=== PATIENT | male | born 1965 | race Caucasian/White ===

== ENCOUNTER 2017-11-23 23:18 | Emergency (ER) | payer SELFPAY ==
[~2017-11-23 23:18] MED LIST changes: -FAMO20TA28 PO; -ONDA4TAB PO
--- NOTE | 2017-11-23 23:23 | ER Report ---
History and Physical Time Seen By MD: 23:23 HPI/ROS CHIEF COMPLAINT: Vomiting HISTORY OF PRESENT ILLNESS: 52-year-old male brought in by EMS from [facility]. He is legally blind. Patient's been vomiting for 3 days. He notes no abdominal pain. He denies diarrhea. He denies fever or chills. He denies exposure to ill contacts. Patient is homeless and travels on [employer] bus is frequently. Patient was picked up outside of [facility]. He states he ate there tonight. Patient denies dysuria, frequency or hematuria. Patient denies previous abdominal surgery. REVIEW OF SYSTEMS: Respiratory: No cough, no dyspnea. Cardiovascular: No chest pain, no palpitations. Gastrointestinal: As above Musculoskeletal: No back pain. Allergies: Coded Allergies: No Known Drug Allergies (Unverified , 04/10/14) Home Meds Active Scripts Ondansetron (ZOFRAN ODT) 4 Mg Tab.rapdis, 4 MG PO every 6 hours Y for NAUSEA/ VOMITING, #10 TAB TAKE 1 TABLET BY MOUTH EVERY 12 HOURS Prov:TARYN COBB DO 11/24/17 Naproxen (NAPROSYN) 500 Mg Tablet, 500 MG PO Q12H, #30 TAB TAKE 1 TABLET EVERY 12 HOURS. Prov:JHONY DE LEÓN MD 04/10/14 Reported Medications Meclizine Hcl (MECLIZINE HCL) 25 Mg Tablet, 25 MG PO BID 04/10/14 Discontinued Scripts Meclizine Hcl (MECLIZINE HCL) 25 Mg Tablet, 25 MG PO TID Y for dizziness, #30 2 Refills Prov:TARYN COBB DO 04/11/14 Tramadol Hcl (ULTRAM) 50 Mg Tablet, 50 MG PO Q4-6H, #20 TAB Prov:JHONY DE LEÓN MD 04/10/14 Reviewed Nurses Notes: Yes Old Medical Records Reviewed: Yes Hx Smoking: No Smoking Status: Never Smoker Hx Substance Use Disorder: No Hx Alcohol Use: Yes (OCC) Constitutional Vital Sign - Last 24 Hours 11/23/17 11/23/17 11/23/17 11/24/17 23:24 23:30 23:45 00:00 Temp 98.3 Pulse 82 Resp 18 B/P (MAP) 151/102 142/108 (119) 155/104 (121) 162/99 (120) Pulse Ox 90 O2 Delivery Room Air Physical Exam Vital signs stable, afebrile, pulse ox normal General Appearance: The patient is alert, has no immediate need for airway protection and no current signs of toxicity. Mild distress, staining of his kauffman with emesis HEENT: Pupils equal and round no injection. TMs normal, oropharynx without redness or exudate Respiratory: Chest is non tender, lungs are clear to auscultation. Cardiac: regular rate and rhythm Gastrointestinal: Abdomen is soft and non tender, no masses, bowel sounds normal. Musculoskeletal: Neck: Neck is supple and non tender. Extremities have full range of motion and are non tender. Skin: No rashes or lesions. DIFFERENTIAL DIAGNOSIS: After history and physical exam differential diagnosis was considered for abdominal pain including but not limited to appendicitis, cholecystitis, gastritis, food poisoning, gastroenteritis, viral syndrome and urinary tract infection. Medical Decision Making Data Points Result Diagram: 11/24/17 0020 11/24/17 0020 Laboratory Hematology Test 11/23/17 23:50 11/24/17 00:20 Urine Color Yellow Urine Clarity Clear Urine pH 7.0 pH (4.8-9.5) Urine Specific [place] 1.009 Urine Protein Negative mg/dL (NEGATIVE) Urine Glucose (UA) Negative mg/dL (NEGATIVE) Urine Ketones Negative mg/dL (NEGATIVE) Urine Blood Negative (NEGATIVE) Urine Nitrite Negative (NEGATIVE) Urine Bilirubin Negative (NEGATIVE) Urine Urobilinogen Negative mg/dL (0.2-1.9) Urine Leukocyte Esterase Negative (NEGATIVE) Urine RBC None /HPF (0-2/HPF) Urine WBC None /HPF (0-5/HPF) Urine Squamous Epithelial Cells Few /LPF (</=FEW) Urine Bacteria Negative /HPF (NONE-FEW) Urine Mucus None /HPF (NONE-FEW) Red Blood Count 4.61 M/uL (4.00-5.60) Mean Corpuscular Volume 74.4 fL (80.0-96.0) Mean Corpuscular Hemoglobin 24.1 pg (26.0-33.0) Mean Corpuscular Hemoglobin Concent 32.4 g/dL (32.0-36.0) Red Cell Distribution Width 16.1 % (11.5-14.5) Mean Platelet Volume 9.4 fL (7.2-11.1) Neutrophils (%) (Auto) 75.0 % (39.4-72.5) Lymphocytes (%) (Auto) 11.9 % (17.6-49.6) Monocytes (%) (Auto) 9.9 % (4.1-12.4) Eosinophils (%) (Auto) 2.4 % (0.4-6.7) Basophils (%) (Auto) 0.8 % (0.3-1.4) Nucleated RBC Relative Count (auto) 0.1 /100WBC Neutrophils # (Auto) 6.3 K/uL (2.0-7.4) Lymphocytes # (Auto) 1.0 K/uL (1.3-3.6) Monocytes # (Auto) 0.8 K/uL (0.3-1.0) Eosinophils # (Auto) 0.2 K/uL (0.0-0.5) Basophils # (Auto) 0.1 K/uL (0.0-0.1) Nucleated RBC Absolute Count (auto) 0.01 K/uL Peripheral Blood Smear No Y/N Sodium Level 138 mmol/L (137-145) Potassium Level 3.7 mmol/L (3.5-5.0) Chloride Level 101 mmol/L (98-107) Carbon Dioxide Level 24 mmol/L (22-30) Blood Urea Nitrogen 17 mg/dl (9-21) Creatinine 0.80 mg/dl (0.66-1.25) Glomerular Filtration Rate Calc > 60.0 Random Glucose 89 mg/dl (75-110) Calcium Level 8.9 mg/dl (8.4-10.2) Total Bilirubin 0.4 mg/dl (0.2-1.3) Aspartate Amino Transf (AST/SGOT) 23 U/L (0-35) Alanine Aminotransferase (ALT/SGPT) 22 U/L (0-56) Alkaline Phosphatase 91 U/L (0-126) Total Protein 7.0 g/dl (6.3-8.2) Albumin 3.7 g/dl (3.5-5.0) Amylase Level 63 U/L (0-110) Lipase 170 U/L (23-300) Serum Alcohol < 10 mg/dl Chemistry Test 11/23/17 23:50 11/24/17 00:20 Urine Color Yellow Urine Clarity Clear Urine pH 7.0 pH (4.8-9.5) Urine Specific [place] 1.009 Urine Protein Negative mg/dL (NEGATIVE) Urine Glucose (UA) Negative mg/dL (NEGATIVE) Urine Ketones Negative mg/dL (NEGATIVE) Urine Blood Negative (NEGATIVE) Urine Nitrite Negative (NEGATIVE) Urine Bilirubin Negative (NEGATIVE) Urine Urobilinogen Negative mg/dL (0.2-1.9) Urine Leukocyte Esterase Negative (NEGATIVE) Urine RBC None /HPF (0-2/HPF) Urine WBC None /HPF (0-5/HPF) Urine Squamous Epithelial Cells Few /LPF (</=FEW) Urine Bacteria Negative /HPF (NONE-FEW) Urine Mucus None /HPF (NONE-FEW) White Blood Count 8.4 k/uL (4.5-11.0) Red Blood Count 4.61 M/uL (4.00-5.60) Hemoglobin 11.1 g/dL (14.0-18.0) Hematocrit 34.3 % (42.0-52.0) Mean Corpuscular Volume 74.4 fL (80.0-96.0) Mean Corpuscular Hemoglobin 24.1 pg (26.0-33.0) Mean Corpuscular Hemoglobin Concent 32.4 g/dL (32.0-36.0) Red Cell Distribution Width 16.1 % (11.5-14.5) Platelet Count 213 K/uL (150-450) Mean Platelet Volume 9.4 fL (7.2-11.1) Neutrophils (%) (Auto) 75.0 % (39.4-72.5) Lymphocytes (%) (Auto) 11.9 % (17.6-49.6) Monocytes (%) (Auto) 9.9 % (4.1-12.4) Eosinophils (%) (Auto) 2.4 % (0.4-6.7) Basophils (%) (Auto) 0.8 % (0.3-1.4) Nucleated RBC Relative Count (auto) 0.1 /100WBC Neutrophils # (Auto) 6.3 K/uL (2.0-7.4) Lymphocytes # (Auto) 1.0 K/uL (1.3-3.6) Monocytes # (Auto) 0.8 K/uL (0.3-1.0) Eosinophils # (Auto) 0.2 K/uL (0.0-0.5) Basophils # (Auto) 0.1 K/uL (0.0-0.1) Nucleated RBC Absolute Count (auto) 0.01 K/uL Peripheral Blood Smear No Y/N Glomerular Filtration Rate Calc > 60.0 Calcium Level 8.9 mg/dl (8.4-10.2) Total Bilirubin 0.4 mg/dl (0.2-1.3) Aspartate Amino Transf (AST/SGOT) 23 U/L (0-35) Alanine Aminotransferase (ALT/SGPT) 22 U/L (0-56) Alkaline Phosphatase 91 U/L (0-126) Total Protein 7.0 g/dl (6.3-8.2) Albumin 3.7 g/dl (3.5-5.0) Amylase Level 63 U/L (0-110) Lipase 170 U/L (23-300) Serum Alcohol < 10 mg/dl Toxicology Test 11/24/17 00:20 Serum Alcohol < 10 mg/dl Urinalysis Test 11/23/17 23:50 Urine Color Yellow Urine Clarity Clear Urine pH 7.0 pH (4.8-9.5) Urine Specific [place] 1.009 Urine Protein Negative mg/dL (NEGATIVE) Urine Glucose (UA) Negative mg/dL (NEGATIVE) Urine Ketones Negative mg/dL (NEGATIVE) Urine Blood Negative (NEGATIVE) Urine Nitrite Negative (NEGATIVE) Urine Bilirubin Negative (NEGATIVE) Urine Urobilinogen Negative mg/dL (0.2-1.9) Urine Leukocyte Esterase Negative (NEGATIVE) Urine RBC None /HPF (0-2/HPF) Urine WBC None /HPF (0-5/HPF) Urine Squamous Epithelial Cells Few /LPF (</=FEW) Urine Bacteria Negative /HPF (NONE-FEW) Urine Mucus None /HPF (NONE-FEW) ED Course/Re-evaluation ED Course Patient was admitted to an examination room. H&P was done. The dental diagnoses was considered. IV fluid hydration and Zofran were ordered. Unfortunately nurses were unable to establish a peripheral IV. Patient had routine blood drawn. After a period of observation, the patient was reevaluated. He's got a jug milk on his bed and he is eating cookies which he removed from his bag. Patient was informed of his laboratory studies are unremarkable. He's advised a clear liquid diet. He is given prescription for Zofran. Patient advised to follow-up with primary care if unimproved in 3-5 days. Decision to Disposition Date: Nov 24, 2017 Decision to Disposition Time: 01:40 Depart Departure Latest Vital Signs Vital Signs Date Time Temp Pulse Resp B/P (MAP) Pulse Ox O2 Delivery O2 Flow Rate FiO2 11/24/17 00:00 162/99 (120) 11/23/17 23:24 98.3 82 18 90 Room Air Impression: Primary Impression: Nausea and vomiting Additional Impressions: Chronic vertigo Legal blindness Condition: Improved Disposition: HOME OR SELF-CARE New Scripts Ondansetron (ZOFRAN ODT) 4 Mg Tab.rapdis 4 MG PO every 6 hours Y for NAUSEA/VOMITING, #10 TAB TAKE 1 TABLET BY MOUTH EVERY 12 HOURS Prov: TARYN COBB DO 11/24/17 Patient Instructions: Acute Nausea and Vomiting (ED), Clear Liquid Diet (ED) Additional Instructions: Follow clear liquid diet for 24 hours, then advance to Denzel diet, bananas, rice , applesauce and toast Use Zofran/ondansetron to control vomiting as needed Follow-up with primary care if unimproved in 3-5 days. Problem Qualifiers Primary Impression: Nausea and vomiting Vomiting type: unspecified Vomiting Intractability: unspecified Qualified Codes: R11.2 - Nausea with vomiting, unspecified TARYN COBB DO Nov 23, 2017 23:23
[2017-11-23] MEDS ORDERED: ONDANSETRON 4 MG/2 ML VIAL IVP ONE (23:25)
[2017-11-24] VITALS: BP 162/99
[2017-11-24 00:27] LABS: PLATELET COUNT, AUTOMATED 213 K/uL (150-450)
[2017-11-24] MEDS ORDERED: ONDA4TAB PO (01:42)
[2017-11-24] MEDS ORDERED: ONDANSETRON 4 MG ODT TH SL ONE (01:45)
[2017-11-24] MEDS ORDERED: ONDANSETRON 4 MG ODT TABDP SL ONE (01:45)
[2017-11-24] MEDS ORDERED: MIDAZOLAM 10 MG/2 ML VIAL IVP ONE (01:55)
[2017-11-25] MEDS ORDERED: FAMO20TA28 PO (12:34)
== END 2017-11-24 02:20 | disposition home or self-care (01) ==
LOC: ER 23:25
DX: R42 Dizziness and giddiness (principal); R11.2 Nausea with vomiting, unspecified; H54.8 Legal blindness, as defined in USA
CPT/HCPCS: 36415; 80320; 81001; 82150; 83690; 85025; 99283; S0119; 82040; 82247; 82310; 82374; 82435; 82565; 82947; 84075; 84132; 84155; 84295; 84450; 84460; 84520

== ENCOUNTER → 2017-11-23 | Outpatient (CLI) | payer SELFPAY ==
[~2017-11-23] MED LIST: FAMO20TA28 PO; MECL25TA9 PO; NAPR500T75 PO; ONDA4TAB PO; TRAM-627 PO
== END ==
LOC: AMB 23:06
PROVIDERS: ATTEND Nurse Practitioner
DX: R11.2 Nausea with vomiting, unspecified (principal); I10 Essential (primary) hypertension
CPT/HCPCS: A0425; A0429

== ENCOUNTER 2017-11-24 12:35 | Emergency (ER) | payer SELFPAY ==
[~2017-11-24 12:35] MED LIST changes: -FAMO20TA28 PO
[2017-11-24] MEDS ORDERED: NS(*) 0.9% 1000 ML BAG 1,000 ML IV ONE (13:25)
--- NOTE | 2017-11-24 13:28 | ER Report ---
History and Physical Time Seen By MD: 13:03 Hx. of Stated Complaint: pt reports nausea, one episode of vomiting HPI/ROS Chief Complaint: "dizzy and lethargic" HPI: 52-year-old patient presents to the emergency department with complaints of dizziness and lethargy. He reports his symptoms started three days ago. He sought care from the emergency department yesterday. He states nothing makes the dizziness or lethargy worse or better. He states his appetite has not changed. Reports he did vomit this morning. He reports no treatments tried. ROS: Constitutional: denies fevers, chills, or night sweats, reports lethargy and dizziness Head: denies headache ENMT: denies sore throat Respiratory: denies chest pain or shortness of breath CV: denies chest pain GI: reports vomiting, denies constipation or diarrhea Allergies: Coded Allergies: No Known Drug Allergies (Unverified , 04/10/14) Home Meds Active Scripts Ondansetron (ZOFRAN ODT) 4 Mg Tab.rapdis, 4 MG PO every 6 hours Y for NAUSEA/ VOMITING, #10 TAB TAKE 1 TABLET BY MOUTH EVERY 12 HOURS Prov:TARYN COBB DO 11/24/17 Naproxen (NAPROSYN) 500 Mg Tablet, 500 MG PO Q12H, #30 TAB TAKE 1 TABLET EVERY 12 HOURS. Prov:JHONY DE LEÓN MD 04/10/14 Reported Medications Meclizine Hcl (MECLIZINE HCL) 25 Mg Tablet, 25 MG PO BID 04/10/14 Discontinued Scripts Meclizine Hcl (MECLIZINE HCL) 25 Mg Tablet, 25 MG PO TID Y for dizziness, #30 2 Refills Prov:TARYN COBB DO 04/11/14 Tramadol Hcl (ULTRAM) 50 Mg Tablet, 50 MG PO Q4-6H, #20 TAB Prov:JHONY DE LEÓN MD 04/10/14 Past Medical/Surgical History blindness, orthopedic surgery Hx Smoking: No Smoking Status: Never Smoker Hx Substance Use Disorder: No Hx Alcohol Use: Yes (OCC) Constitutional Vital Sign - Last 24 Hours 11/24/17 11/24/17 12:35 15:48 Temp 97.9 Pulse 96 77 Resp 16 94 B/P (MAP) 142/102 124/70 (88) Pulse Ox 93 O2 Delivery Room Air Room Air Physical Exam General: 52-year-old blind male, appears indigent, in no acute distress Head: normocephalic, atraumatic Eyes: Pupils BL equal, round, and reactive to light and accommodation Respiratory: Bl equal respiratory excursion, CTA BL CV: Clear S1 S2, no murmurs GI: normoactive BS x 4, no pain on palpation Musculoskeletal: moves all extremities Differential diagnoses considered: hypotension, dehydration, viral illness, gastroenteritis Medical Decision Making Data Points Result Diagram: 11/24/17 1410 11/24/17 1410 Laboratory Hematology Test 11/24/17 14:10 11/24/17 15:05 Red Blood Count 4.71 M/uL (4.00-5.60) Mean Corpuscular Volume 73.7 fL (80.0-96.0) Mean Corpuscular Hemoglobin 23.7 pg (26.0-33.0) Mean Corpuscular Hemoglobin Concent 32.1 g/dL (32.0-36.0) Red Cell Distribution Width 16.2 % (11.5-14.5) Mean Platelet Volume 9.1 fL (7.2-11.1) Neutrophils (%) (Auto) 72.3 % (39.4-72.5) Lymphocytes (%) (Auto) 14.2 % (17.6-49.6) Monocytes (%) (Auto) 9.5 % (4.1-12.4) Eosinophils (%) (Auto) 3.3 % (0.4-6.7) Basophils (%) (Auto) 0.7 % (0.3-1.4) Nucleated RBC Relative Count (auto) 0.0 /100WBC Neutrophils # (Auto) 5.0 K/uL (2.0-7.4) Lymphocytes # (Auto) 1.0 K/uL (1.3-3.6) Monocytes # (Auto) 0.7 K/uL (0.3-1.0) Eosinophils # (Auto) 0.2 K/uL (0.0-0.5) Basophils # (Auto) 0.1 K/uL (0.0-0.1) Nucleated RBC Absolute Count (auto) 0.00 K/uL Sodium Level 141 mmol/L (137-145) Potassium Level 4.1 mmol/L (3.5-5.0) Chloride Level 103 mmol/L (98-107) Carbon Dioxide Level 23 mmol/L (22-30) Blood Urea Nitrogen 15 mg/dl (9-21) Creatinine 0.70 mg/dl (0.66-1.25) Glomerular Filtration Rate Calc > 60.0 Random Glucose 105 mg/dl (75-110) Calcium Level 9.0 mg/dl (8.4-10.2) Total Bilirubin 0.4 mg/dl (0.2-1.3) Aspartate Amino Transf (AST/SGOT) 20 U/L (0-35) Alanine Aminotransferase (ALT/SGPT) 26 U/L (0-56) Alkaline Phosphatase 90 U/L (0-126) Total Protein 7.3 g/dl (6.3-8.2) Albumin 3.8 g/dl (3.5-5.0) Urine Color Straw Urine Clarity Clear Urine pH 6.0 pH (4.8-9.5) Urine Specific [place] 1.006 Urine Protein Negative mg/dL (NEGATIVE) Urine Glucose (UA) Negative mg/dL (NEGATIVE) Urine Ketones Negative mg/dL (NEGATIVE) Urine Blood Negative (NEGATIVE) Urine Nitrite Negative (NEGATIVE) Urine Bilirubin Negative (NEGATIVE) Urine Urobilinogen Negative mg/dL (0.2-1.9) Urine Leukocyte Esterase Negative (NEGATIVE) Urine RBC <1 /HPF (0-2/HPF) Urine WBC <1 /HPF (0-5/HPF) Urine Squamous Epithelial Cells None /LPF (</=FEW) Urine Bacteria Negative /HPF (NONE-FEW) Urine Mucus None /HPF (NONE-FEW) Chemistry Test 11/24/17 14:10 11/24/17 15:05 White Blood Count 6.9 k/uL (4.5-11.0) Red Blood Count 4.71 M/uL (4.00-5.60) Hemoglobin 11.2 g/dL (14.0-18.0) Hematocrit 34.7 % (42.0-52.0) Mean Corpuscular Volume 73.7 fL (80.0-96.0) Mean Corpuscular Hemoglobin 23.7 pg (26.0-33.0) Mean Corpuscular Hemoglobin Concent 32.1 g/dL (32.0-36.0) Red Cell Distribution Width 16.2 % (11.5-14.5) Platelet Count 245 K/uL (150-450) Mean Platelet Volume 9.1 fL (7.2-11.1) Neutrophils (%) (Auto) 72.3 % (39.4-72.5) Lymphocytes (%) (Auto) 14.2 % (17.6-49.6) Monocytes (%) (Auto) 9.5 % (4.1-12.4) Eosinophils (%) (Auto) 3.3 % (0.4-6.7) Basophils (%) (Auto) 0.7 % (0.3-1.4) Nucleated RBC Relative Count (auto) 0.0 /100WBC Neutrophils # (Auto) 5.0 K/uL (2.0-7.4) Lymphocytes # (Auto) 1.0 K/uL (1.3-3.6) Monocytes # (Auto) 0.7 K/uL (0.3-1.0) Eosinophils # (Auto) 0.2 K/uL (0.0-0.5) Basophils # (Auto) 0.1 K/uL (0.0-0.1) Nucleated RBC Absolute Count (auto) 0.00 K/uL Glomerular Filtration Rate Calc > 60.0 Calcium Level 9.0 mg/dl (8.4-10.2) Total Bilirubin 0.4 mg/dl (0.2-1.3) Aspartate Amino Transf (AST/SGOT) 20 U/L (0-35) Alanine Aminotransferase (ALT/SGPT) 26 U/L (0-56) Alkaline Phosphatase 90 U/L (0-126) Total Protein 7.3 g/dl (6.3-8.2) Albumin 3.8 g/dl (3.5-5.0) Urine Color Straw Urine Clarity Clear Urine pH 6.0 pH (4.8-9.5) Urine Specific [place] 1.006 Urine Protein Negative mg/dL (NEGATIVE) Urine Glucose (UA) Negative mg/dL (NEGATIVE) Urine Ketones Negative mg/dL (NEGATIVE) Urine Blood Negative (NEGATIVE) Urine Nitrite Negative (NEGATIVE) Urine Bilirubin Negative (NEGATIVE) Urine Urobilinogen Negative mg/dL (0.2-1.9) Urine Leukocyte Esterase Negative (NEGATIVE) Urine RBC <1 /HPF (0-2/HPF) Urine WBC <1 /HPF (0-5/HPF) Urine Squamous Epithelial Cells None /LPF (</=FEW) Urine Bacteria Negative /HPF (NONE-FEW) Urine Mucus None /HPF (NONE-FEW) Urinalysis Test 11/24/17 15:05 Urine Color Straw Urine Clarity Clear Urine pH 6.0 pH (4.8-9.5) Urine Specific [place] 1.006 Urine Protein Negative mg/dL (NEGATIVE) Urine Glucose (UA) Negative mg/dL (NEGATIVE) Urine Ketones Negative mg/dL (NEGATIVE) Urine Blood Negative (NEGATIVE) Urine Nitrite Negative (NEGATIVE) Urine Bilirubin Negative (NEGATIVE) Urine Urobilinogen Negative mg/dL (0.2-1.9) Urine Leukocyte Esterase Negative (NEGATIVE) Urine RBC <1 /HPF (0-2/HPF) Urine WBC <1 /HPF (0-5/HPF) Urine Squamous Epithelial Cells None /LPF (</=FEW) Urine Bacteria Negative /HPF (NONE-FEW) Urine Mucus None /HPF (NONE-FEW) ED Course/Re-evaluation ED Course 52-year-old male patient presents to the emergency department with complaints of dizziness and lethargy. The patient is blind and appears indigent. He did receive care in the emergency department yesterday. History and physical examination were obtained. Differnetial diagnoses were considered and shared with the patient. The patient was encouraged to push fluids while in the emergency department today. The patient does have chronic anemia that is improved today when compared to lab results of yesterdays ED visit. The patient 's orthostatic blood pressures, CBC, and CMP were non-contributory. The patient was encouraged to return to the emergency department if his condition worsens. The patient was sent to his desired location in a cab provided by the hospital. Decision to Disposition Date: Nov 24, 2017 Decision to Disposition Time: 15:49 Depart Departure Latest Vital Signs Vital Signs Date Time Temp Pulse Resp B/P (MAP) Pulse Ox O2 Delivery O2 Flow Rate FiO2 11/24/17 15:48 77 94 124/70 (88) Room Air 11/24/17 12:35 97.9 93 Impression: Primary Impression: Dizziness Additional Impression: Fatigue Condition: Improved Disposition: HOME OR SELF-CARE Patient Instructions: Dizziness (ED), Fatigue (ED) Additional Instructions: Return to the Emergency Department if your condition worsens. Return to the Emergency Department if you experience chest pain or difficulty breathing. Rest and increase your fluid intake. Continue taking your iron supplement. Problem Qualifiers Additional Impression: Fatigue Fatigue type: unspecified Qualified Codes: R53.83 - Other fatigue ROBERT OCAMPO Nov 24, 2017 13:28
[2017-11-24 14:17] LABS: PLATELET COUNT, AUTOMATED 245 K/uL (150-450)
[2017-11-24 15:48] VITALS: BP 124/70
[2017-11-25] MEDS ORDERED: FAMO20TA28 PO (12:34)
== END 2017-11-24 15:49 | disposition home or self-care (01) ==
LOC: ER 12:48
DX: R42 Dizziness and giddiness (principal); R53.83 Other fatigue
CPT/HCPCS: 36415; 81001; 82040; 82247; 82310; 82374; 82435; 82565; 82947; 84075; 84132; 84155; 84295; 84450; 84460; 84520; 85025; 99282

== ENCOUNTER → 2017-11-24 | Outpatient (CLI) | payer SELFPAY ==
[~2017-11-24] MED LIST changes: +FAMO20TA28 PO; +ONDA4TAB PO
== END ==
LOC: AMB 12:30
PROVIDERS: ATTEND Nurse Practitioner
DX: R11.0 Nausea (principal)
CPT/HCPCS: A0425; A0429

== ENCOUNTER 2017-11-25 12:27 | Emergency (ER) | payer SELFPAY ==
[~2017-11-25 12:27] MED LIST changes: -FAMO20TA28 PO
[2017-11-25] MEDS ORDERED: FAMO20TA28 PO (12:34)
--- NOTE | 2017-11-25 12:42 | ER Report ---
History and Physical Time Seen By MD: 12:42 HPI/ROS CHIEF COMPLAINT: Nausea and vomiting HISTORY OF PRESENT ILLNESS: 52-year-old male patient presents to the emergency room with complaint of nausea and vomiting. Patient states that starting last night at 7:00 he started feeling very nauseous. He states that he vomited 8 times from that time until the morning. States that he ate some breakfast this morning and then vomited again. Patient denies having fevers, chills. Patient states he is not taking any medication for this. Patient states that he has not eaten anything that they suspect. He states that [place] and start vomiting. They did ask last night if he needed to have an ambulance called. He states that he did not, however this morning he felt that he did need evaluation. REVIEW OF SYSTEMS: Respiratory: No cough, no dyspnea. Cardiovascular: No chest pain, no palpitations. Gastrointestinal: As noted above Musculoskeletal: No back pain. Allergies: Coded Allergies: No Known Drug Allergies (Unverified , 11/25/17) Home Meds Active Scripts Ondansetron (ZOFRAN ODT) 4 Mg Tab.rapdis, 4 MG PO every 6 hours Y for NAUSEA/ VOMITING, #10 TAB TAKE 1 TABLET BY MOUTH EVERY 12 HOURS Prov:TARYN COBB DO 11/24/17 Naproxen (NAPROSYN) 500 Mg Tablet, 500 MG PO Q12H, #30 TAB TAKE 1 TABLET EVERY 12 HOURS. Prov:JHONY DE LEÓN MD 04/10/14 Reported Medications Famotidine (PEPCID) 20 Mg Tablet, 20 MG PO TID, #10 TAB 11/25/17 Meclizine Hcl (MECLIZINE HCL) 25 Mg Tablet, 25 MG PO BID 04/10/14 Discontinued Scripts Meclizine Hcl (MECLIZINE HCL) 25 Mg Tablet, 25 MG PO TID Y for dizziness, #30 2 Refills Prov:TARYN COBB DO 04/11/14 Tramadol Hcl (ULTRAM) 50 Mg Tablet, 50 MG PO Q4-6H, #20 TAB Prov:JHONY DE LEÓN MD 04/10/14 Past Medical/Surgical History Patient has past medical history of ulcers, legally blind, occasional alcohol use. Patient has surgical history of right leg surgery. Reviewed Nurses Notes: Yes Hx Smoking: No Smoking Status: Never Smoker Hx Substance Use Disorder: No Hx Alcohol Use: No (OCC) Constitutional Vital Sign - Last 24 Hours 11/25/17 11/25/17 11/25/17 11/25/17 12:27 12:29 12:30 13:30 Temp 98.0 Pulse 100 104 Resp 20 B/P (MAP) 143/94 138/96 (110) 141/99 (113) Pulse Ox 93 92 O2 Delivery Room Air Physical Exam General Appearance: The patient is alert, has no immediate need for airway protection and no current signs of toxicity. Respiratory: Chest is non tender, lungs are clear to auscultation. Cardiac: regular rate and rhythm Gastrointestinal: Abdomen is soft and mildly tender in the right upper quadrant , no masses, bowel sounds normal. Musculoskeletal: Neck: Neck is supple and non tender. Extremities have full range of motion and are non tender. Skin: No rashes or lesions. DIFFERENTIAL DIAGNOSIS: After history and physical exam differential diagnosis was considered for nausea and vomiting including but not limited to gastroenteritis, gastritis, appendicitis, and medication side effect. Medical Decision Making EKG/Imaging Imaging ACUTE ABDOMEN SERIES 3 VIEW HISTORY: vomiting Abdominal series. Three series KUB and chest film (four total films) FINDINGS: Nonspecific bowel gas pattern. No abdominal mass lesion. No abnormal calcification. Moderate fecal impaction in the descending colon. Bony structures are unremarkable. Lung zayas are clear. Cardiac and hilar structures well-maintained. Both structures are normal. IMPRESSION: 1. Negative abdominal series. 2. Normal chest Report Dictated By: Khoa Sharpe MD at 11/25/2017 1:29 PM Report E-Signed By: Khoa Sharpe MD at 11/25/2017 1:30 PM ED Course/Re-evaluation ED Course Patient is admitted and examined, history and physical were obtained. Differential diagnoses were considered. On examination lungs are clear, heart is regular, abdomen was slightly tender in the right upper quadrant. Patient having labs done yesterday and the day before with no variance. I do not feel that we needed to repeat labs. Therefore an acute abdominal series was done. The x-ray itself was unremarkable. We will go ahead and discharge patient home at this time. Patient states he is feeling better. We will have him follow-up with his primary care provider as needed. We did discuss getting the patient a voucher for a hotel room. Patient refused that. Stated that he wanted to go to the grocery store and then go to [facility]. Decision to Disposition Date: Nov 25, 2017 Decision to Disposition Time: 13:54 Depart Departure Latest Vital Signs Vital Signs Date Time Temp Pulse Resp B/P (MAP) Pulse Ox O2 Delivery O2 Flow Rate FiO2 11/25/17 13:30 141/99 (113) 11/25/17 12:29 98.0 104 20 92 Room Air Impression: Primary Impression: Nausea and vomiting Additional Impression: Legal blindness Condition: Improved Disposition: HOME OR SELF-CARE Patient Instructions: Acute Nausea and Vomiting (ED) Additional Instructions: Increase fluid intake. Clear liquid diet for the next 24-48 hours. After that you may advance diet as tolerated starting with complex carbohydrates ; rice, bread or pasta. Follow up with your primary care provider in the next week. Return to the ER if condition worsens. You may take over the counter Pepto Bismol as needed for cramping, diarrhea and discomfort. Problem Qualifiers Primary Impression: Nausea and vomiting Vomiting type: unspecified Vomiting Intractability: non-intractable Qualified Codes: R11.2 - Nausea with vomiting, unspecified ROBERT OCAMPO Nov 25, 2017 12:42
--- NOTE | 2017-11-25 13:35 | RADIOLOGY IMAGING REPORT ---
FACILITY: [facility] PATIENT NAME: Gerry Gautam : 1965 MR: [id number] V: [id number] EXAM DATE: ORDERING PHYSICIAN: ROBERT OCAMPO TECHNOLOGIST: Location: [facility] [place] Patient: Gerry Gautam : 1965 Visit/Account:[id number] Date of Sevice: 11/25/2017 ACUTE ABDOMEN SERIES 3 VIEW HISTORY: vomiting Abdominal series. Three series KUB and chest film (four total films) FINDINGS: Nonspecific bowel gas pattern. No abdominal mass lesion. No abnormal calcification. Moderate fecal impaction in the descending colon. Bony structures are unremarkable. Lung zayas are clear. Cardiac and hilar structures well-maintained. Both structures are normal. IMPRESSION: 1. Negative abdominal series. 2. Normal chest Report Dictated By: Khoa Sharpe MD at 11/25/2017 1:29 PM Report E-Signed By: Khoa Sharpe MD at 11/25/2017 1:30 PM WSN:[email or web address]
[2017-11-25 14:00] VITALS: BP 149/94
== END 2017-11-25 14:04 | disposition home or self-care (01) ==
LOC: ER 12:28
DX: R11.2 Nausea with vomiting, unspecified (principal)
CPT/HCPCS: 74022; 99283

== ENCOUNTER → 2017-11-25 | Outpatient (CLI) | payer SELFPAY ==
[~2017-11-25] MED LIST changes: +FAMO20TA28 PO
== END ==
LOC: AMB 12:04
PROVIDERS: ATTEND Nurse Practitioner
DX: R11.2 Nausea with vomiting, unspecified (principal)
CPT/HCPCS: A0425; A0429